=== PATIENT | male | born 1985 | race African-American/Black ===

== ENCOUNTER 2025-02-28 18:45 | Emergency (ER) | payer BC, SELFPAY ==
[2025-02-28 18:59] VITALS: BP 152/88
[2025-02-28 19:24] LABS: COVID-19 Antigen Positive (Negative)
--- NOTE | 2025-02-28 19:39 | ED.GENMED ---
History of Present Illness
General
Chief Complaint: Cold/Flu/URI Symptoms
Source: patient
Time Seen by Provider: 02/28/25 19:27
History of Present Illness
History of Present Illness:
40-year-old male presents complaining of onset of fever headache sore neck fatigue body aches nausea. This started today. No associated chest pain or abdominal pain. He is not sensitive to light. He is healthy otherwise does not take any
medications regularly. He does endorse recent travel in a plane to several different locations in the country. No rash. No other complaints
Past History
Past History
ED Past Medical History: None
ED Past Surgical History: None
Social History
Tobacco: Non-smoker
Alcohol: None
Phy Exam
Physical Exam
Physical Exam:
General: Overall well-appearing male no acute respiratory distress
HEENT: Normocephalic atraumatic posterior pharynx patent neck is supple no adenopathy pupils equal round reactive to light
Heart: Regular rate and rhythm
Lungs: Clear no wheeze
Abdomen is soft nontender
Extremities: No cyanosis
Neurologic exam: No nuchal rigidity. Good range of motion cervical spine. No meningeal signs alert and oriented
Course
Orders/Labs/Results
Orders:
Orders
02/28/25 19:04
COVID-19 Antigen Urgent
Source: Nasal Swab
Influenza A+B Rapid Molecular Urgent
JAYLEN Source: Nasal Swab
Specimen Description:
02/28/25 19:37
0.9% Sodium Chloride 1000 ml [Nss] 1,000 ml IV BOLUS
Ketorolac [Toradol] 15 mg IV NOW STA
Ondansetron Injectable [Zofran] 4 mg IV NOW STA
02/28/25 19:55
Complete Blood Count/With Diff Urgent
02/28/25 20:57
Comprehensive Metabolic Panel Urgent
Abnormal Lab Results
02/28/25 02/28/25 02/28/25
19:04 19:55 20:57
MCH 26.7 L pg
(27.0-31.0)
MCHC 32.8 L g/dL
(33.0-37.0)
MPV 10.9 H fL
(7.4-10.4)
Absolute Lymphs (auto) 0.6 L 10^3/uL
(1.2-3.4)
Absolute Monos (auto) 0.8 H 10^3/uL
(0.1-0.6)
Neutrophils % 80.0 H %
(42.2-75.2)
Lymphocytes % 7.6 L %
(20.5-51.1)
Monocytes % 11.6 H %
(1.7-9.3)
Glucose 128 H mg/dl
(70-99)
AST 15 L U/L
(17-59)
Alkaline Phosphatase 37 L U/L
(38-126)
SARS-CoV-2 Antigen Positive A
(Negative)
02/28/25 19:55
02/28/25 20:57
Vital Signs
Initial and Last Documented VS:
Initial Vital Signs
Temp Pulse Resp BP Pulse Ox
99.3 F 97 20 152/88 98
02/28/25 18:59 02/28/25 18:59 02/28/25 18:59 02/28/25 18:59 02/28/25 18:59
Last Documented Vital Signs
Temp Pulse Resp BP Pulse Ox
99.3 F 97 20 152/88 98
02/28/25 18:59 02/28/25 18:59 02/28/25 18:59 02/28/25 18:59 02/28/25 19:42
MDM/Problems Addressed
Differential Diagnosis Includes:
Patient with fever headache stiff neck recent travel. Overall does look nontoxic consider viral illness such as COVID or flu. Meningitis in differential however reassuring exam given lack of nuchal rigidity and no meningeal signs. Patient did
test positive for COVID here. He is not feeling well overall attempted hydrate treat symptoms with Toradol and Zofran. Will reassess
*Pulse Oximetry
SaO2: 98
Oxygen Mode of Delivery: Room air
Patient hypoxic: no
*Critical Care Note
Total Time (30-74mins, 75-104mins- exclusive of procedures): Not Applicable
Update Note
Update Note:
Patient feeling better after fluids and Toradol. I suspect patient's symptoms are all related to his viral syndrome of COVID. No indication for lumbar puncture at this time. Recommended supportive care. Stable for discharge
ED Attending Note
-
Portions of this chart may have been created with voice recognition software.� Occasional wrong word or��sound alike� substitutions may have occurred due to the inherent limitations of voice recognition software.
Discharge Plan
Departure
Patient Disposition: Home (Routine Discharge)
Date of Disposition: 02/28/25
Time of Disposition: 22:14
Patient with high blood pressure during this ER visit?: No
Discharge Problem:
COVID-19
Instructions: Viral Syndrome (DC)
Prescriptions:
No Action
doxycycline hyclate 100 MG capsule
100 mg PO Q12 Qty: 28 0RF
naproxen sodium 550 MG tablet
550 mg PO BID Qty: 28 0RF
Referrals:
Cristian Crystal Jr., DO [Family Provider, Internal Medicine]
Activity Restrictions/Additional Instructions:
Rest. Drink plenty of fluids. Continue with ibuprofen or Tylenol for fever. Return if worse otherwise follow-up with your doctor
Interventions
Interventions:
*Risk Screen - Suicide Last Done: 02/28/25 20:00
*General Assessment Last Done: 02/28/25 18:59
*Neglect/Abuse Screening Last Done: 02/28/25 20:00
ED- Pulmonary Assessment Last Done: 02/28/25 20:00
Discharge Date and Time
Print Language: BULGARIAN
[2025-02-28] MEDS: TORADOL 15 MG IV (19:59)
[2025-02-28] MEDS: NSS 1000 IV (19:59)
[2025-02-28] MEDS: ZOFRAN 4 MG IV (19:59)
[2025-02-28 20:05] LABS: Hematocrit 40.2 % (39.0-52.0); Hemoglobin 13.2 g/dL (13.0-18.0); Mean Corp Hgb Conc. 32.8 g/dL (33.0-37.0); Mean Corpuscular Volume 81.2 fL (80.0-94.0); Nucleated Red Blood Cells % 0 % (-); Platelet Count 164 10^3/uL (130-400); Red Cell Dist. Width 13.9 % (11.5-14.5)
[2025-02-28 21:21] LABS: ALT (SGPT) 16 U/L (0-50); AST (SGOT) 15 U/L (17-59); Albumin 4.0 g/dl (3.5-5.0); Alkaline Phosphatase 37 U/L (38-126); Blood Urea Nitrogen 14 mg/dl (9-20); Calcium 9.0 mg/dl (8.4-10.2); Carbon Dioxide 25 mmol/L (22-30); Chloride 106 mmol/L (98-107); Glucose 128 mg/dl (70-99); Potassium 3.9 mmol/L (3.5-5.1); Sodium 136 mmol/L (135-145); Total Protein 7.0 g/dl (6.3-8.2); eGFR > 60.00
[2025-02-28 22:27] VITALS: BP 147/82
== END 2025-02-28 22:32 | disposition home or self-care (01) ==
LOC: EMR 18:45
PROVIDERS: Emergency Medicine; Physician Assistant; EMERGENCY PHYSICIAN Emergency Medicine; FAMILY PHYSICIAN Family Medicine
DX: U07.1 COVID-19 (principal)
CPT/HCPCS: 99283; 96374; 96375; 96361; 80053; 85025; 87502; 87811